=== PATIENT | female | born 1945 | race Two or more races ===

== ENCOUNTER 2019-12-20 17:19 | Inpatient (IN) | payer MEDICARE, MEDICAID ==
[~2019-12-20] VITALS: Ht 170.2 cm; Wt 110.8 kg
[2019-12-20] MEDS ORDERED: ACETAMINOPHEN 325MG TABLET PO STA (17:35)
[2019-12-20] MEDS ORDERED: AZITHROMYCIN 500 MG in DEXT 5% WATER 250 ML IV SCH (17:45)
[2019-12-20] MEDS ORDERED: VANCOMYCIN 1 G PREMIX 200 ML IV ONE (17:45)
[2019-12-20 20:13] LABS: BASOPHILS % 0.7 % (0.0-2.0); EOSINOPHILS % 0.2 % (0.0-5.0); HEMATOCRIT. 32.5 % (36.0-48.0); HEMOGLOBIN. 10.1 g/dL (12.0-16.0); LYMPHOCYTES % 16.6 % (20.0-50.0); MEAN CORPUSCULAR HEMOGLOBIN 27.5 pg (28.0-32.0); MEAN CORPUSCULAR VOLUME 88.3 fL (81.0-99.0); NEUTROPHILS % 77.5 % (40.0-76.0); PLATELET 165 x1000/uL (130-400); RED BLOOD CELL COUNT 3.68 mill/uL (4.2-5.4); RED CELL DISTRIBUTION WIDTH 18.4 % (11.6-14.6)
[2019-12-20 20:18] LABS: CHLORIDE 104 mEq/L (98-107)
[2019-12-20 20:19] LABS: INR 1.1; PROTHROMBIN TIME 11.5 sec (9.6-11.0)
[2019-12-20 23:13] LABS: BG BASE EXCESS 7.2 mmol/L (-2.0-2.0); BG CARBOXYHEMOGLOBIN 0.1 % (0.5-1.5); BG FRACTION INSPIRED OXYGEN 36; BG HCO3 ACT 34.2 mmol/L (22.0-26.0); BG METHEMOGLOBIN 0.3 % (0.0-1.5); BG OXYHEMOGLOBIN 96.6 % (94.0-97.0); BG PCO2 63.1 mmHg (35.0-45.0); BG PH 7.352 (7.350-7.450); BG PO2 102.9 mmHg (75.0-100.0); BG SAMPLE SITE RIGHT RADIAL; BG TOTAL HEMOGLOBIN 9.9 g/dL (12.0-18.0); BG VENT MODE NASAL CANNULA
[2019-12-21 01:57] LABS: CLARITY URINE CLOUDY (CLEAR); COLOR URINE YELLOW (YELLOW); KETONES URINE NEGATIVE (NEGATIVE); LEUKOCYTE ESTERASE URINE TRACE (NEGATIVE); NITRITE URINE NEGATIVE (NEGATIVE); OCCULT BLOOD URINE NEGATIVE (NEGATIVE); PROTEIN URINE 4+ (NEGATIVE); SPECIFIC GRAVITY URINE 1.022 (1.005-1.030)
[2019-12-21] MEDS ORDERED: ACETAMINOPHEN 325MG TABLET PO ONE (06:00)
[2019-12-21] MEDS ORDERED: CLONIDINE 0.1MG TABLET PO PRN (06:30)
[2019-12-21] MEDS: AMLODIPINE 10MG TABLET PO SCH (06:36)
[2019-12-21] MEDS ORDERED: CEFTRIAXONE 1 G PREMIX 50 ML IV SCH (09:00)
[2019-12-21] MEDS ORDERED: BENZONATATE 100MG CAPSULE PO PRN (09:00)
[2019-12-21] MEDS ORDERED: HYDRALAZINE HCL 50MG TABLET PO SCH (09:15)
[2019-12-21] MEDS: ASCORBIC ACID 500 MG TABLET PO SCH ×2 (09:27→22:27)
[2019-12-21] MEDS: ZINC SULFATE 220 MG ( 50 ) CAPSULE PO SCH (09:27)
[2019-12-21] MEDS: AZITHROMYCIN 500 MG TABLET PO SCH (09:27)
[2019-12-21] MEDS ORDERED: ALBUTEROL 6.7GM HFA INHALER ORI SCH ×2 (10:30→18:00)
[2019-12-21 13:00] VITALS: BP 178/59
[2019-12-21 14:00] VITALS: BP 178/59
[2019-12-21] MEDS: ENOXAPARIN 30MG/0.3ML SYR SUBCUT SCH (14:38)
[2019-12-21 16:00] VITALS: BP 140/47
[2019-12-21 20:00] VITALS: BP 107/74
[2019-12-21 20:01] LABS: HEPATITIS B SURFACE ANTIGEN NEGATIVE
[2019-12-21 20:30] LABS: HEPATITIS A AB IGM NEGATIVE (NEGATIVE)
[2019-12-21] MEDS: HYDRALAZINE HCL 100MG TABLET PO SCH (22:27)
[2019-12-22] MEDS ORDERED: SENN-155 PO (03:31)
[2019-12-22] MEDS ORDERED: APIX2.5T PO (03:31)
[2019-12-22] MEDS ORDERED: GABA-531 PO (03:31)
[2019-12-22] MEDS ORDERED: LISI10TA5 PO (03:31)
[2019-12-22] MEDS ORDERED: DILT60TA3 PO (03:31)
[2019-12-22] MEDS ORDERED: DOCU100T PO (03:31)
[2019-12-22] MEDS ORDERED: PANT40TA4 PO (03:31)
[2019-12-22] MEDS ORDERED: FERR325T6 PO (03:31)
[2019-12-22 04:00] VITALS: BP 169/69
[2019-12-22 08:00] VITALS: BP 170/67
[2019-12-22] MEDS: SODIUM CHLORIDE 0.9% 1,000 ML IV SCH ×2 (10:24→18:00)
[2019-12-22] MEDS: ENOXAPARIN 30MG/0.3ML SYR SUBCUT SCH (10:24)
[2019-12-22] MEDS: ASCORBIC ACID 500 MG TABLET PO SCH ×2 (10:25→21:52)
[2019-12-22] MEDS: ZINC SULFATE 220 MG ( 50 ) CAPSULE PO SCH (10:25)
[2019-12-22] MEDS: AZITHROMYCIN 500 MG TABLET PO SCH (10:25)
[2019-12-22] MEDS: AMLODIPINE 10MG TABLET PO SCH (10:25)
[2019-12-22] MEDS: HYDRALAZINE HCL 100MG TABLET PO SCH ×2 (10:25→17:12)
[2019-12-22 11:38] LABS: BASOPHILS % 0.5 % (0.0-2.0); EOSINOPHILS % 0.1 % (0.0-5.0); HEMATOCRIT. 33.9 % (36.0-48.0); HEMOGLOBIN. 10.6 g/dL (12.0-16.0); LYMPHOCYTES % 21.1 % (20.0-50.0); MEAN CORPUSCULAR HEMOGLOBIN 27.3 pg (28.0-32.0); MEAN CORPUSCULAR VOLUME 87.3 fL (81.0-99.0); MEAN PLATELET VOLUME 10.7 fl (7.4-10.4); MONOCYTES % 4.1 % (2.0-8.0); NEUTROPHILS % 74.2 % (40.0-76.0); PLATELET 194 x1000/uL (130-400); RED BLOOD CELL COUNT 3.88 mill/uL (4.2-5.4)
[2019-12-22 11:48] LABS: CHLORIDE 106 mEq/L (98-107)
[2019-12-22 12:00] VITALS: BP 152/80
[2019-12-22] MEDS: CEFTRIAXONE 1 G PREMIX 50 ML IV SCH (14:55)
[2019-12-22 16:00] VITALS: BP 170/63
[2019-12-22] MEDS: ALBUTEROL 6.7GM HFA INHALER ORI SCH (17:13)
[2019-12-22 20:00] VITALS: BP 169/55
[2019-12-22] MEDS: MINOXIDIL 2.5MG TABLET PO SCH (21:52)
[2019-12-23] VITALS: BP 163/56
[2019-12-23] MEDS: HYDRALAZINE HCL 100MG TABLET PO SCH ×3 (02:24→17:17)
[2019-12-23 04:00] VITALS: BP 154/56
[2019-12-23] MEDS: ACETAMINOPHEN 325MG TABLET PO PRN ×3 (04:20→23:47)
[2019-12-23 08:00] VITALS: BP 145/51
[2019-12-23 08:21] LABS: CLARITY URINE CLOUDY (CLEAR); COLOR URINE YELLOW (YELLOW); KETONES URINE NEGATIVE (NEGATIVE); LEUKOCYTE ESTERASE URINE NEGATIVE (NEGATIVE); NITRITE URINE NEGATIVE (NEGATIVE); OCCULT BLOOD URINE NEGATIVE (NEGATIVE); PH URINE 5.5 (4.5-8.0); PROTEIN URINE 4+ (NEGATIVE); SPECIFIC GRAVITY URINE 1.019 (1.005-1.030)
[2019-12-23] MEDS: ZINC SULFATE 220 MG ( 50 ) CAPSULE PO SCH (09:09)
[2019-12-23] MEDS: CEFTRIAXONE 1 G PREMIX 50 ML IV SCH (09:09)
[2019-12-23] MEDS: ASCORBIC ACID 500 MG TABLET PO SCH ×2 (09:09→21:29)
[2019-12-23] MEDS: ENOXAPARIN 30MG/0.3ML SYR SUBCUT SCH (09:09)
[2019-12-23] MEDS: AZITHROMYCIN 500 MG TABLET PO SCH (09:09)
[2019-12-23] MEDS: SODIUM CHLORIDE 0.9% 1,000 ML IV SCH (09:10)
[2019-12-23] MEDS: MINOXIDIL 2.5MG TABLET PO SCH ×2 (09:10→21:29)
[2019-12-23] MEDS: AMLODIPINE 10MG TABLET PO SCH (09:10)
[2019-12-23 12:00] VITALS: BP 152/54
[2019-12-23 16:00] VITALS: BP 144/58
[2019-12-23 20:00] VITALS: BP 155/55
[2019-12-23] MEDS: ALBUTEROL 6.7GM HFA INHALER ORI SCH (21:35)
[2019-12-24] VITALS: BP 129/51
[2019-12-24] MEDS: HYDRALAZINE HCL 100MG TABLET PO SCH ×4 (00:35→16:48)
[2019-12-24 04:00] VITALS: BP 130/47
[2019-12-24] MEDS: SODIUM CHLORIDE 0.9% 1,000 ML IV SCH (04:20)
[2019-12-24] MEDS: ALBUTEROL 6.7GM HFA INHALER ORI SCH ×3 (05:43→16:50)
[2019-12-24] MEDS: CEFTRIAXONE 1 G PREMIX 50 ML IV SCH (09:54)
[2019-12-24] MEDS: ASCORBIC ACID 500 MG TABLET PO SCH ×2 (09:55→21:51)
[2019-12-24] MEDS: ZINC SULFATE 220 MG ( 50 ) CAPSULE PO SCH (09:55)
[2019-12-24] MEDS: ENOXAPARIN 30MG/0.3ML SYR SUBCUT SCH (09:55)
[2019-12-24] MEDS: AZITHROMYCIN 500 MG TABLET PO SCH (09:55)
[2019-12-24] MEDS: AMLODIPINE 10MG TABLET PO SCH (09:56)
[2019-12-24 09:59] VITALS: BP 166/52
[2019-12-24] MEDS: MINOXIDIL 2.5MG TABLET PO SCH ×2 (11:35→21:50)
[2019-12-24 12:04] LABS: CREATINE KINASE 79 IU/L (26-192)
[2019-12-24 12:08] VITALS: BP 143/53
[2019-12-24 16:54] VITALS: BP 130/51
[2019-12-24 20:00] VITALS: BP 146/48
[2019-12-25] VITALS: BP_SYST 105; BP_SYST 119; BP_DIAS 38; BP_DIAS 43
[2019-12-25] MEDS: HYDRALAZINE HCL 100MG TABLET PO SCH ×3 (01:09→18:38)
[2019-12-25] MEDS: ALBUTEROL 6.7GM HFA INHALER ORI SCH ×4 (01:11→18:40)
[2019-12-25 04:00] VITALS: BP 119/38
[2019-12-25] MEDS: SODIUM CHLORIDE 0.9% 1,000 ML IV SCH ×2 (04:11→22:14)
[2019-12-25 09:21] VITALS: BP 126/44
[2019-12-25] MEDS: CEFTRIAXONE 1 G PREMIX 50 ML IV SCH (09:25)
[2019-12-25] MEDS: ZINC SULFATE 220 MG ( 50 ) CAPSULE PO SCH (09:26)
[2019-12-25] MEDS: ENOXAPARIN 30MG/0.3ML SYR SUBCUT SCH (09:26)
[2019-12-25] MEDS: ASCORBIC ACID 500 MG TABLET PO SCH ×2 (09:26→22:13)
[2019-12-25] MEDS: MINOXIDIL 2.5MG TABLET PO SCH ×2 (09:29→21:00)
[2019-12-25] MEDS: AZITHROMYCIN 500 MG TABLET PO SCH (09:30)
[2019-12-25] MEDS: AMLODIPINE 10MG TABLET PO SCH (09:30)
[2019-12-25 12:34] VITALS: BP 105/46
[2019-12-25] MEDS: METHYLPREDNISOLONE SOD SUCC 40 MG/ML VIAL IV SCH ×2 (13:25→22:14)
[2019-12-25 16:19] VITALS: BP 134/45
[2019-12-25] MEDS: NITROFURANTOIN 100MG M/M CAPSULE PO SCH (22:13)
[2019-12-25] MEDS: ACETAMINOPHEN 325MG TABLET PO PRN (23:31)
[2019-12-26] VITALS: BP 105/38
[2019-12-26 04:00] VITALS: BP 132/47
[2019-12-26 08:30] VITALS: BP 170/85
[2019-12-26] MEDS: NITROFURANTOIN 100MG M/M CAPSULE PO SCH ×2 (08:41→20:44)
[2019-12-26] MEDS: AMLODIPINE 10MG TABLET PO SCH (08:41)
[2019-12-26] MEDS: ASCORBIC ACID 500 MG TABLET PO SCH ×2 (08:41→20:44)
[2019-12-26] MEDS: ZINC SULFATE 220 MG ( 50 ) CAPSULE PO SCH (08:41)
[2019-12-26] MEDS: ENOXAPARIN 30MG/0.3ML SYR SUBCUT SCH (08:42)
[2019-12-26] MEDS: MINOXIDIL 2.5MG TABLET PO SCH ×2 (08:42→20:43)
[2019-12-26] MEDS: METHYLPREDNISOLONE SOD SUCC 40 MG/ML VIAL IV SCH ×2 (08:42→20:43)
[2019-12-26] MEDS: HYDRALAZINE HCL 100MG TABLET PO SCH ×3 (08:44→17:21)
[2019-12-26] MEDS: CEFTRIAXONE 1 G PREMIX 50 ML IV SCH (08:47)
[2019-12-26 12:00] VITALS: BP 120/65
[2019-12-26 16:00] VITALS: BP 123/60
[2019-12-26] MEDS: ALBUTEROL 6.7GM HFA INHALER ORI SCH (17:21)
[2019-12-26] MEDS: SODIUM CHLORIDE 0.9% 1,000 ML IV SCH (18:44)
[2019-12-26 20:00] VITALS: BP 132/47
[2019-12-26] MEDS: ZOLPIDEM TARTRATE 5MG TABLET PO PRN (20:44)
[2019-12-26] MEDS: ACETAMINOPHEN 325MG TABLET PO PRN (22:19)
[2019-12-27] VITALS: BP 155/72
[2019-12-27] MEDS: ALBUTEROL 6.7GM HFA INHALER ORI SCH ×4 (00:03→17:11)
[2019-12-27] MEDS: HYDRALAZINE HCL 100MG TABLET PO SCH ×3 (00:04→17:09)
[2019-12-27 04:00] VITALS: BP 97/54
[2019-12-27 08:00] VITALS: BP 154/44
[2019-12-27] MEDS: ZINC SULFATE 220 MG ( 50 ) CAPSULE PO SCH (08:11)
[2019-12-27] MEDS: METHYLPREDNISOLONE SOD SUCC 40 MG/ML VIAL IV SCH ×2 (08:11→21:18)
[2019-12-27] MEDS: NITROFURANTOIN 100MG M/M CAPSULE PO SCH ×2 (08:11→21:18)
[2019-12-27] MEDS: AMLODIPINE 10MG TABLET PO SCH (08:12)
[2019-12-27] MEDS: ASCORBIC ACID 500 MG TABLET PO SCH ×2 (08:12→21:18)
[2019-12-27] MEDS: ENOXAPARIN 30MG/0.3ML SYR SUBCUT SCH (08:17)
[2019-12-27] MEDS: MINOXIDIL 2.5MG TABLET PO SCH ×2 (08:18→21:18)
[2019-12-27 12:00] VITALS: BP 118/47
[2019-12-27 16:00] VITALS: BP 117/43
[2019-12-27 20:00] VITALS: BP 121/45
[2019-12-28] VITALS (7 sets, daily range): BP systolic 104–177; BP diastolic 43–77
[2019-12-28] MEDS: HYDRALAZINE HCL 100MG TABLET PO SCH ×3 (00:51→16:43)
[2019-12-28 05:08] LABS: HEMOGLOBIN. 9.7 g/dL (12.0-16.0); MEAN CORPUSCULAR HEMOGLOBIN 27.5 pg (28.0-32.0); MEAN CORPUSCULAR VOLUME 85.1 fL (81.0-99.0); MEAN PLATELET VOLUME 9.8 fl (7.4-10.4); PLATELET 354 x1000/uL (130-400); RED BLOOD CELL COUNT 3.53 mill/uL (4.2-5.4); RED CELL DISTRIBUTION WIDTH 17.9 % (11.6-14.6)
[2019-12-28] MEDS: ALBUTEROL 6.7GM HFA INHALER ORI SCH ×2 (05:09)
[2019-12-28] MEDS ORDERED: SODIUM CHLORIDE 0.9% 1,000 ML IV SCH (06:30)
[2019-12-28] MEDS: ENOXAPARIN 30MG/0.3ML SYR SUBCUT SCH (09:01)
[2019-12-28] MEDS: METHYLPREDNISOLONE SOD SUCC 40 MG/ML VIAL IV SCH (09:01)
[2019-12-28] MEDS: SODIUM CHLORIDE 0.9% 1,000 ML IV SCH (09:02)
[2019-12-28] MEDS: AMLODIPINE 10MG TABLET PO SCH (09:03)
[2019-12-28] MEDS: NITROFURANTOIN 100MG M/M CAPSULE PO SCH ×2 (09:03→20:44)
[2019-12-28] MEDS: ZINC SULFATE 220 MG ( 50 ) CAPSULE PO SCH (09:03)
[2019-12-28] MEDS: ASCORBIC ACID 500 MG TABLET PO SCH ×2 (09:03→20:43)
[2019-12-28] MEDS: MINOXIDIL 2.5MG TABLET PO SCH ×3 (09:39→20:44)
[2019-12-28 18:12] LABS: PLATELET ESTIMATE NORMAL
[2019-12-29 00:53] VITALS: BP 99/59
[2019-12-29 04:00] VITALS: BP 101/50
[2019-12-29] MEDS: ALBUTEROL 6.7GM HFA INHALER ORI SCH ×4 (05:09→18:00)
[2019-12-29] MEDS: SODIUM CHLORIDE 0.9% 1,000 ML IV SCH ×2 (05:12→14:43)
[2019-12-29] MEDS: HYDRALAZINE HCL 100MG TABLET PO SCH ×2 (08:00)
[2019-12-29] MEDS: AMLODIPINE 10MG TABLET PO SCH (09:00)
[2019-12-29] MEDS: ENOXAPARIN 30MG/0.3ML SYR SUBCUT SCH (09:00)
[2019-12-29] MEDS: ZINC SULFATE 220 MG ( 50 ) CAPSULE PO SCH (09:00)
[2019-12-29] MEDS: NITROFURANTOIN 100MG M/M CAPSULE PO SCH ×2 (09:00→22:02)
[2019-12-29] MEDS: ASCORBIC ACID 500 MG TABLET PO SCH ×2 (09:00→22:02)
[2019-12-29] MEDS: MINOXIDIL 2.5MG TABLET PO SCH (09:00)
[2019-12-29 12:00] VITALS: BP 128/53
[2019-12-29 16:00] VITALS: BP 92/52
[2019-12-29 16:19] LABS: BASOPHILS % 0.2 % (0.0-2.0); HEMATOCRIT. 31.5 % (36.0-48.0); HEMOGLOBIN. 9.9 g/dL (12.0-16.0); LYMPHOCYTES % 8.5 % (20.0-50.0); MEAN CORPUSCULAR HEMOGLOBIN 26.9 pg (28.0-32.0); MEAN CORPUSCULAR VOLUME 85.1 fL (81.0-99.0); MEAN PLATELET VOLUME 9.8 fl (7.4-10.4); MONOCYTES % 6.3 % (2.0-8.0); PLATELET 382 x1000/uL (130-400); RED CELL DISTRIBUTION WIDTH 18.4 % (11.6-14.6)
[2019-12-29 20:00] VITALS: BP 93/49
[2019-12-29] MEDS: ZOLPIDEM TARTRATE 5MG TABLET PO PRN (22:02)
[2019-12-30] VITALS: BP 107/44
[2019-12-30] MEDS: ALBUTEROL 6.7GM HFA INHALER ORI SCH ×4 (00:35→18:31)
[2019-12-30 04:00] VITALS: BP 112/58
[2019-12-30 08:00] VITALS: BP 97/51
[2019-12-30] MEDS: NITROFURANTOIN 100MG M/M CAPSULE PO SCH ×2 (09:51→20:44)
[2019-12-30] MEDS: ZINC SULFATE 220 MG ( 50 ) CAPSULE PO SCH (09:51)
[2019-12-30] MEDS: ASCORBIC ACID 500 MG TABLET PO SCH ×2 (09:51→20:44)
[2019-12-30] MEDS: ENOXAPARIN 30MG/0.3ML SYR SUBCUT SCH (09:52)
[2019-12-30 12:00] VITALS: BP 110/50
[2019-12-30] MEDS: SODIUM CHLORIDE 0.9% 1,000 ML IV SCH (12:37)
[2019-12-30 16:00] VITALS: BP 102/53
[2019-12-30 20:00] VITALS: BP 105/45
[2019-12-31] VITALS: BP 99/57
[2019-12-31] MEDS: ALBUTEROL 6.7GM HFA INHALER ORI SCH ×4 (01:26→17:10)
[2019-12-31 04:00] VITALS: BP 100/69
[2019-12-31] MEDS: ZINC SULFATE 220 MG ( 50 ) CAPSULE PO SCH (10:48)
[2019-12-31] MEDS: ASCORBIC ACID 500 MG TABLET PO SCH ×2 (10:48→21:04)
[2019-12-31] MEDS: ENOXAPARIN 30MG/0.3ML SYR SUBCUT SCH (10:49)
[2019-12-31 12:00] VITALS: BP 121/64
[2019-12-31] MEDS: METHYLPREDNISOLONE SOD SUCC 40 MG/ML VIAL IV SCH ×2 (13:47→17:08)
[2019-12-31] MEDS: SODIUM CHLORIDE 0.9% 1,000 ML IV SCH (13:49)
[2019-12-31 20:00] VITALS: BP 131/48
[2020-01-01] MEDS: ALBUTEROL 6.7GM HFA INHALER ORI SCH ×4 (01:47→18:00)
[2020-01-01 08:00] VITALS: BP 123/79
[2020-01-01] MEDS ORDERED: LIDOCAINE HCL 1% 20ML VIAL (Pyxis) INJ ONE (08:39)
[2020-01-01] MEDS: ZINC SULFATE 220 MG ( 50 ) CAPSULE PO SCH (08:45)
[2020-01-01] MEDS: METHYLPREDNISOLONE SOD SUCC 40 MG/ML VIAL IV SCH ×2 (08:45→17:33)
[2020-01-01] MEDS: ENOXAPARIN 30MG/0.3ML SYR SUBCUT SCH (08:46)
[2020-01-01] MEDS: ASCORBIC ACID 500 MG TABLET PO SCH ×2 (08:46→22:30)
[2020-01-01 12:00] VITALS: BP 100/73
[2020-01-01] MEDS: SODIUM CHLORIDE 0.9% 1,000 ML IV SCH (14:43)
[2020-01-01 16:00] VITALS: BP 127/68
[2020-01-01 16:58] LABS: INR 1.1; PROTHROMBIN TIME 12.2 sec (9.6-11.0)
[2020-01-01 17:05] LABS: BASOPHILS % 0.6 % (0.0-2.0); HEMATOCRIT. 30.5 % (36.0-48.0); HEMOGLOBIN. 9.7 g/dL (12.0-16.0); LYMPHOCYTES % 14.9 % (20.0-50.0); MEAN CORPUSCULAR HEMOGLOBIN 27.4 pg (28.0-32.0); MEAN CORPUSCULAR VOLUME 85.8 fL (81.0-99.0); MONOCYTES % 1.5 % (2.0-8.0); RED BLOOD CELL COUNT 3.56 mill/uL (4.2-5.4); RED CELL DISTRIBUTION WIDTH 17.9 % (11.6-14.6)
[2020-01-01 17:52] LABS: MEAN PLATELET VOLUME 9.5 fl (7.4-10.4); PLATELET 309 x1000/uL (130-400)
[2020-01-01 17:54] LABS: PLATELET ESTIMATE NORMAL
[2020-01-01 20:00] VITALS: BP 119/76
[2020-01-02] VITALS: BP 104/83
[2020-01-02] MEDS: ALBUTEROL 6.7GM HFA INHALER ORI SCH ×4 (06:06→18:21)
[2020-01-02 08:02] LABS: HEMOGLOBIN. 8.8 g/dL (12.0-16.0); MEAN CORPUSCULAR HEMOGLOBIN 27.2 pg (28.0-32.0); MEAN CORPUSCULAR VOLUME 83.6 fL (81.0-99.0); MEAN PLATELET VOLUME 10.4 fl (7.4-10.4); PLATELET 378 x1000/uL (130-400); RED BLOOD CELL COUNT 3.23 mill/uL (4.2-5.4)
[2020-01-02 09:00] VITALS: BP 155/66
[2020-01-02] MEDS: METHYLPREDNISOLONE SOD SUCC 40 MG/ML VIAL IV SCH ×2 (10:08→16:51)
[2020-01-02] MEDS: ENOXAPARIN 30MG/0.3ML SYR SUBCUT SCH (10:08)
[2020-01-02] MEDS: ASCORBIC ACID 500 MG TABLET PO SCH ×2 (10:08→21:03)
[2020-01-02] MEDS: ZINC SULFATE 220 MG ( 50 ) CAPSULE PO SCH (10:09)
[2020-01-02 12:22] VITALS: BP 116/52
[2020-01-02 16:58] VITALS: BP 119/62
[2020-01-02 20:00] VITALS: BP_SYST 105; BP_SYST 107; BP_DIAS 52; BP_DIAS 60
[2020-01-02] MEDS: HYDRALAZINE HCL 50MG TABLET PO SCH (22:00)
[2020-01-02 22:54] LABS: PLATELET ESTIMATE NORMAL
[2020-01-03] VITALS: BP 107/52
[2020-01-03] MEDS: ALBUTEROL 6.7GM HFA INHALER ORI SCH ×5 (06:00→23:15)
[2020-01-03] MEDS: HYDRALAZINE HCL 50MG TABLET PO SCH (06:00)
[2020-01-03 08:00] VITALS: BP 117/91
[2020-01-03] MEDS: ENOXAPARIN 30MG/0.3ML SYR SUBCUT SCH (09:29)
[2020-01-03] MEDS: ASCORBIC ACID 500 MG TABLET PO SCH ×2 (09:29→20:37)
[2020-01-03] MEDS: METHYLPREDNISOLONE SOD SUCC 40 MG/ML VIAL IV SCH ×2 (09:29→17:28)
[2020-01-03] MEDS: ZINC SULFATE 220 MG ( 50 ) CAPSULE PO SCH (09:29)
[2020-01-03 16:00] VITALS: BP 126/53
[2020-01-03 17:24] LABS: HEMATOCRIT. 28.2 % (36.0-48.0); HEMOGLOBIN. 9.2 g/dL (12.0-16.0); MEAN CORPUSCULAR HEMOGLOBIN 27.6 pg (28.0-32.0); MEAN CORPUSCULAR VOLUME 84.4 fL (81.0-99.0); MEAN PLATELET VOLUME 9.9 fl (7.4-10.4); PLATELET 381 x1000/uL (130-400); RED BLOOD CELL COUNT 3.34 mill/uL (4.2-5.4)
[2020-01-03 17:52] LABS: PLATELET ESTIMATE NORMAL
[2020-01-03 20:00] VITALS: BP 157/96
[2020-01-04] VITALS: BP 145/83
[2020-01-04 04:00] VITALS: BP 149/84
[2020-01-04] MEDS: ALBUTEROL 6.7GM HFA INHALER ORI SCH ×3 (06:16→18:33)
[2020-01-04 08:00] VITALS: BP 149/80
[2020-01-04] MEDS: ENOXAPARIN 30MG/0.3ML SYR SUBCUT SCH (08:55)
[2020-01-04] MEDS: METHYLPREDNISOLONE SOD SUCC 40 MG/ML VIAL IV SCH (08:55)
[2020-01-04] MEDS: METOPROLOL TARTRATE 50MG TABLET PO SCH ×2 (08:56→20:32)
[2020-01-04] MEDS: ZINC SULFATE 220 MG ( 50 ) CAPSULE PO SCH (09:00)
[2020-01-04] MEDS: ASCORBIC ACID 500 MG TABLET PO SCH ×2 (09:00→20:32)
[2020-01-04] MEDS ORDERED: DILTIAZEM HCL 5MG/ML 5ML VIAL IV SCH (12:45)
[2020-01-04] MEDS ORDERED: ENOXAPARIN 80MG/0.8ML SYR SUBCUT SCH (13:00)
[2020-01-04] MEDS ORDERED: HALOPERIDOL LACTATE 5MG/ML VIAL IM SCH (15:15)
[2020-01-04] MEDS: DILTIAZEM HCL 30MG TABLET PO SCH (18:00)
[2020-01-04 20:00] VITALS: BP 120/65
[2020-01-05] VITALS (8 sets, daily range): BP systolic 104–136; BP diastolic 61–105
[2020-01-05] MEDS: ALBUTEROL 6.7GM HFA INHALER ORI SCH ×4 (00:59→18:00)
[2020-01-05] MEDS: DILTIAZEM HCL 30MG TABLET PO SCH ×4 (05:27→18:00)
[2020-01-05] MEDS ORDERED: METHYLPREDNISOLONE SOD SUCC 40 MG/ML VIAL IV SCH (09:00)
[2020-01-05] MEDS: ASCORBIC ACID 500 MG TABLET PO SCH (09:00)
[2020-01-05] MEDS: ZINC SULFATE 220 MG ( 50 ) CAPSULE PO SCH (09:00)
[2020-01-05] MEDS: METOPROLOL TARTRATE 50MG TABLET PO SCH (09:26)
[2020-01-05] MEDS ORDERED: HALOPERIDOL LACTATE 5MG/ML VIAL IM ONE (10:00)
[2020-01-05] MEDS ORDERED: LORAZEPAM 2MG/ML CPJ IV PRN (10:00)
[2020-01-05] MEDS ORDERED: ENOXAPARIN 120MG/0.8ML SYR SUBCUT SCH (13:00)
== END 2020-01-05 20:55 | DRG 720 ==
LOC: ER 17:19 → EDBEDREQSVC 22:17 → EDBEDREQTM 22:17 → EDBEDREQ 22:19 → 7WST 22:19 → EDBEDREQ 22:22 → ENRESERV 12-21 11:20
PROVIDERS: ADMIT Internal Medicine; ATTEND Internal Medicine
PROC: 5A1D70Z Performance of Urinary Filtration, Intermittent, Less than 6 Hours Per Day (ICD-10-PCS; principal; 2020-01-01)
PROC: 02HV33Z Insertion of Infusion Device into Superior Vena Cava, Percutaneous Approach (ICD-10-PCS; 2020-01-01)
PROC: B548ZZA Ultrasonography of Superior Vena Cava, Guidance (ICD-10-PCS; 2020-01-01)
DX: A41.89 Other specified sepsis (principal); U07.1 COVID-19; E43 Unspecified severe protein-calorie malnutrition; N17.0 Acute kidney failure with tubular necrosis; J96.00 Acute respiratory failure, unspecified whether with hypoxia or hypercapnia; I48.91 Unspecified atrial fibrillation; E11.22 Type 2 diabetes mellitus with diabetic chronic kidney disease; G62.9 Polyneuropathy, unspecified; I13.0 Hypertensive heart and chronic kidney disease with heart failure and stage 1 through stage 4 chronic kidney disease, or unspecified chronic kidney disease; D64.9 Anemia, unspecified; J12.89 Other viral pneumonia; B97.89 Other viral agents as the cause of diseases classified elsewhere; J44.0 Chronic obstructive pulmonary disease with (acute) lower respiratory infection; J44.1 Chronic obstructive pulmonary disease with (acute) exacerbation; N18.3 Chronic kidney disease, stage 3 (moderate); N39.0 Urinary tract infection, site not specified; J20.8 Acute bronchitis due to other specified organisms; Z66 Do not resuscitate; I50.9 Heart failure, unspecified; R74.0 Nonspecific elevation of levels of transaminase and lactic acid dehydrogenase [LDH]; Z91.19 Patient's noncompliance with other medical treatment and regimen; Z90.5 Acquired absence of kidney; Z68.38 Body mass index [BMI] 38.0-38.9, adult; Z88.0 Allergy status to penicillin; Z79.899 Other long term (current) drug therapy
CPT/HCPCS: 36415; 36600; 71045; 76937; 80048; 80053; 81003; 82375; 82550; 82570; 82728; 82805; 83605; 83615; 84145; 84156; 84484; 85025; 85379; 86705; 86709; 86803; 87077; 87186; 87340; 87635; 87804; 93005; 94640; 99285; C1752; J0456; J0696; J1630; J1650; J2920; J3370; J3490; J7030; J7060; U0003-CS